=== PATIENT | male | born 1950 | race Caucasian/White ===

== ENCOUNTER 2020-10-19 05:54 | Emergency (ER) | payer MEDICARE ==
[~2020-10-19] VITALS: Ht 180.3 cm; Wt 138.6 kg
[2020-10-19] MEDS ORDERED: ATOR40TA75 PO (06:06)
[2020-10-19] MEDS ORDERED: LISI40TA4 PO (06:06)
[2020-10-19] MEDS ORDERED: ECOT81TA5 PO (06:06)
[2020-10-19] MEDS ORDERED: METF-839 PO (06:06)
[2020-10-19] MEDS ORDERED: HYDR12.55 PO (06:06)
[2020-10-19] MEDS ORDERED: FINA5TAB2 PO (06:06)
[2020-10-19] MEDS ORDERED: PERCOCET 5MG/325MG TAB PO ONE (08:50)
--- NOTE | 2020-10-19 09:55 | REP ---
INDICATION: swelling pain. COMPARISON: None. TECHNIQUE: Right {lower extremity duplex venous scanning is performed from the groin to the ankle level. FINDINGS: The deep veins are anechoic and fully compressible from the groin to the popliteal fossa in the right lower extremity. Color flow imaging is homogeneous. Spectral Doppler interrogation demonstrates intact respiratory variation in flow and normal manual augmentation of flow. There is no evidence of deep vein thrombosis above the knee. There is no evidence of DVT in the visualized calf veins. Doppler interrogation of the contralateral common femoral vein shows normal symmetric respiratory phasicity. IMPRESSION: No evidence of DVT in the right lower extremity femoropopliteal veins. No DVT in the visible portions of the calf veins. <Electronically signed by Jeff Londono > 10/19/20 0708
--- NOTE | 2020-10-19 10:00 | REP ---
INDICATION: swelling pain palpable mass. The patient reports he awoke in the middle of the night with pain and a lump in the right thigh. COMPARISON: None. TECHNIQUE: Targeted right thigh soft tissue sonography. FINDINGS: Scanning in the region of the palpable mass in the right thigh demonstrates a large deep thigh soft tissue mass sonographically solid and avascular. It measures 15.2 cm in length by 6.8 x 7.8 cm in transverse dimension. The superficial femoral artery and femoral vein are seen along the medial aspect of the mass and are displaced somewhat posteriorly. There is no visible pseudoaneurysm or aneurysm. No internal Doppler flow is seen. The lesion appears to be intramuscular on large field of view ultrasound images. There are small cystic areas within it and it is heterogeneous in texture. IMPRESSION: Large fusiform intramuscular mass in the right thigh without evidence of Doppler flow. Given the history of sudden spontaneous onset, a large hematoma would be a possibility. Neoplastic mass is not completely excluded. Consideration could be given to MRI scanning for further evaluation. <Electronically signed by Jeff Londono > 10/19/20 [id number]
[2020-10-19] MEDS ORDERED: PERC5TAB12 PO ×2 (13:00→14:01)
[2020-10-19 13:10] VITALS: BP 181/94
--- NOTE | 2020-10-20 06:24 | ED PDOC ---
Post-Departure Follow-Up right extrem us faxed to dr dove for fu Astrid Anne MD Oct 20, 2020 06:24
== END 2020-10-19 13:12 | disposition home or self-care (01) ==
LOC: M ED 05:54
DX: R22.41 Localized swelling, mass and lump, right lower limb (principal); E11.9 Type 2 diabetes mellitus without complications; I10 Essential (primary) hypertension; E78.5 Hyperlipidemia, unspecified; Z79.82 Long term (current) use of aspirin; Z79.899 Other long term (current) drug therapy; Z79.84 Long term (current) use of oral hypoglycemic drugs